=== PATIENT | female | born 1975 | race Caucasian/White ===

== ENCOUNTER 2019-05-25 17:33 | Emergency (ER) | payer MEDICAID ==
[~2019-05-25] VITALS: Ht 162.6 cm; Wt 99.6 kg
[~2019-05-25 17:33] MED LIST: IBUP-2217
[2019-05-25 17:39] VITALS: BP 107/49
--- NOTE | 2019-05-25 17:50 | NUR ---
BIB DAUGHTER. AAO X4. C/O GENERALIZED WEAKNESS SINCE THIS MORNING, PAIN FROM LLQ TO LEFT UPPER LEG, + N/V, + DIZZINESS/HEADACHE, STATED PRESSURE CHEST PAIN ONCE YESTERDAY, DIFFICULTY BREATHING. STEADY GAIT. PER DAUGHTER, PT IS ALSO FASTING. 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 ER TO EVALUATE PT.
--- NOTE | 2019-05-25 18:13 | NUR ---
PT AMBULATED TO THE BATHROOM WITH STEADY GAIT. PT'S DAUGHTER ACCOMPANIED PT
--- NOTE | 2019-05-25 18:30 | NUR ---
RADIOLOGY AT BEDSIDE
[2019-05-25 18:35] LABS: APPEARANCE,URINE CLEAR (CLEAR); BILIRUBIN,URINE NEGATIVE (NEGATIVE); BLOOD, URINE NEGATIVE (NEGATIVE); COLOR,URINE YELLOW (YELLOW); LEUKOCYTE ESTERASE ,URINE NEGATIVE (NEGATIVE); NITRITE, URINE NEGATIVE (NEGATIVE); UGLUCOSE NEGATIVE (NEGATIVE)
[2019-05-25 18:36] LABS: BASOPHILS % (AUTO) 0.5 % (0.0-2.0); EOSINOPHILS # (AUTO) 0.1 K/uL (0-0.4); EOSINOPHILS % (AUTO) 2.1 % (0.0-4.0); HEMATOCRIT 38.2 % (36-48); HEMOGLOBIN 12.8 g/dL (12.0-16.0); LYMPHOCYTES # (AUTO) 1.7 K/uL (2.5-16.5); LYMPHOCYTES % (AUTO) 26.9 % (20.5-51.1); MEAN CORPUSCULAR HEMOGLOBIN 30 pg (27-31); MEAN CORPUSCULAR HGB CONC 34 g/dL (33-37); MEAN CORPUSCULAR VOLUME 89.3 fL (80-94); MONOCYTES # (AUTO) 0.4 K/uL (0.8-1.0); MONOCYTES % (AUTO) 6.5 % (1.7-9.3); NEUTROPHILS # (AUTO) 4.1 K/uL (1.8-7.7); PLATELET COUNT (AUTO) 274 K/uL (140-450); RED BLOOD CELL COUNT(AUTO) 4.27 MIL/uL (4.20-5.40); WHITE BLOOD COUNT (AUTO) 6.3 K/uL (4.8-10.8)
[2019-05-25 18:44] LABS: ANION GAP 9.4 (8-16); CARBON DIOXIDE 29.1 mmol/L (21-32); CREATININE 0.6 mg/dL (0.6-1.3); POTASSIUM 3.5 mmol/L (3.5-5.1)
[2019-05-25 18:50] LABS: PROTHROMBIN TIME 9.5 secs (10.8-13.4)
[2019-05-25 18:51] LABS: ALBUMIN 3.5 g/dL (3.4-5.0); TOTAL BILIRUBIN 0.8 mg/dL (0.0-1.0)
--- NOTE | 2019-05-25 19:05 | NUR ---
Pt report given to MARGARITA Don. Transfer of care at this time.
--- NOTE | 2019-05-25 19:44 | NUR ---
REPORT WAS GIVEN FROM MARGARITA DOMINGUEZ. ASSUMED CARE. S
--- NOTE | 2019-05-25 19:47 | NUR ---
PT RESTING IN BED COMFORTABLY WITH EYES OPEN. VSS. PT IS STILL FEELING DIZZY AND NAUSEA. WILL CONTINUE TO MONITOR.
[2019-05-25 20:45] VITALS: BP 107/49
--- NOTE | 2019-05-25 20:53 | NUR ---
Patient discharged BY DR. MORALES with v/s stable. Written and verbal after care instructions given and explained. Patient alert, oriented and verbalized understanding of instructions. Ambulatory with steady gait. All questions addressed prior to discharge. ID band removed. Patient advised to follow up with PMD. Rx of NAPROSYN WAS given. Patient educated on indication of medication including possible reaction and side effects. Opportunity to ask questions provided and answered.
== END 2019-05-25 20:45 | disposition home or self-care (01) ==
LOC: MED 17:33
DX: B34.9 Viral infection, unspecified (principal); Z79.899 Other long term (current) drug therapy
CPT/HCPCS: 36415; 71045; 74176; 80053; 81003; 81025; 83690; 83880; 84484; 85025; 85610; 85730; 93005; 99284; Q0092; 81002